=== PATIENT | female | born 1995 | race African-American/Black ===

== ENCOUNTER 2017-08-20 07:13 | Emergency (ER) | payer MEDICAID ==
[2017-08-20 07:37] VITALS: BP 108/68
[2017-08-20 08:25] LABS: Basophils % (Auto) 0.6 % (0.0-1.8); Eosinophils % (Auto) 2.1 % (0.0-4.3); Hematocrit 30.8 % (30.3-42.9); Hemoglobin 10.3 gm/dl (10.1-14.3); Mean Corpuscular HGB Conc 34 % (30-34); Mean Corpuscular Hemoglobin 29 pg (28-32); Mean Corpuscular Volume 87 fl (79-97); Platelet Count 221 K/mm3 (140-440); Red Blood Count 3.55 M/mm3 (3.65-5.03); Red Cell Distribution Width 12.7 % (13.2-15.2); White Blood Count 10.3 K/mm3 (4.5-11.0)
[2017-08-20 08:39] LABS: Anion Gap 17 mmol/L; BUN/Creatinine Ratio 27; Blood Urea Nitrogen 8 mg/dL (7-17); Calcium 8.8 mg/dL (8.4-10.2); Carbon Dioxide 23 mmol/L (22-30); Chloride 101.2 mmol/L (98-107); Glucose 86 mg/dL (65-100); Potassium 3.6 mmol/L (3.6-5.0); Sodium 138 mmol/L (137-145)
== END 2017-08-20 11:26 | disposition left against medical advice (07) ==
LOC: ED 07:13
DX: R07.9 Chest pain, unspecified (principal); Z53.21 Procedure and treatment not carried out due to patient leaving prior to being seen by health care provider
CPT/HCPCS: 36415; 80048; 84484; 85025; 93005; 93010

== ENCOUNTER 2017-10-03 17:18 | Outpatient (CLI) | payer OTHER ==
[2017-10-03] MEDS ORDERED: LACTATED RINGERS 500 ML IV ONE (17:47)
[2017-10-03 17:52] VITALS: BP 109/61
[2017-10-03 18:36] LABS: Bacteria,Urine 1+ /HPF (Negative); Bilirubin,Urine NEG (Negative); Blood,Urine NEG (Negative); Ketones,Urine TR mg/dL (Negative); Leukocyte Esterase,Urine TR (Negative); Mucus,Urine FEW /HPF; Nitrite,Urine NEG (Negative); Protein,Urine <15 mg/dL mg/dL (Negative); Urobilinogen,Urine < 2.0 mg/dL (<2.0)
== END 2017-10-03 18:09 | disposition home or self-care (01) ==
LOC: TRG 17:18
PROVIDERS: ATTEND Obstetrics & Gynecology
DX: O47.03 False labor before 37 completed weeks of gestation, third trimester (principal); Z3A.36 36 weeks gestation of pregnancy
CPT/HCPCS: 81001

== ENCOUNTER 2017-11-14 20:18 | Inpatient (IN) | payer OTHER ==
[2017-11-14] MEDS ORDERED: NARCAN 0.4 MG/1 ML IV PRN (20:19)
[2017-11-14] MEDS ORDERED: ZOFRAN IV PRN (20:19)
[2017-11-14] MEDS ORDERED: CERVIDIL VG ONE (20:19)
[2017-11-14] MEDS ORDERED: BRETHINE SUB-Q PRN (20:19)
[2017-11-14] MEDS ORDERED: ePHEDrine SULFATE IV PRN (20:19)
[2017-11-14] MEDS ORDERED: XYLOCAINE 2% INFILTRATI ONE (20:19)
[2017-11-14] MEDS ORDERED: STADOL IV PRN (20:19)
[2017-11-14] MEDS ORDERED: BRETHINE IVP PRN (20:19)
[2017-11-14] MEDS ORDERED: MINERAL OIL PO PRN (20:19)
[2017-11-14] MEDS ORDERED: PHENERGAN PR PRN (20:19)
[2017-11-14] MEDS ORDERED: SUBLIMAZE IV PRN (20:19)
--- NOTE | 2017-11-14 20:29 | History and Physical Report ---
History of Present Illness Date of examination: 11/14/17 Date of admission: 11/14/17 20:18 Chief complaint: induction of labor for post dates History of present illness: This is a 22 yo at 41 weeks admitted to labor and delivery for IOL for post dates. She is a patient of [facility] late entry at 17 weeks. her OB course was uneventful bedsides late care. Past History Past Medical History: no pertinent history Past Surgical History: no surgical history Family/Genetic History: diabetes (mother ), hypertension (father and mother), other (hypercholesterolemia mother ) Social history: single. denies: smoking, alcohol abuse, prescription drug abuse - Obstetrical History Expected Date of Delivery: 11/07/17 Actual Gestation: 41 Week(s) 0 Day(s) : 1 Para: 0 Hx # Term Pregnancies: 0 Number of Pregnancies: 0 Spontaneous Abortions: 0 Induced : 0 Number of Living Children: 0 Medications and Allergies Allergies Allergy/AdvReac Type Severity Reaction Status Date / Time peanut Allergy Shortness Verified 08/20/17 07:29 of Breath Review of Systems All systems: negative - Physical Exam Breasts: Positive: normal Cardiovascular: Regular rate, Normal S1 Lungs: Positive: Clear to auscultation, Normal air movement Abdomen: Positive: normal appearance, soft, normal bowel sounds. Negative: distention, tenderness, guarding Genitourinary (Female): Positive: normal external genitalia, normal perenium Vulva: both: normal Vagina: Positive: normal moisture Uterus: Positive: normal size Anus/Rectum: Positive: normal perianal skin Extremities: Positive: normal Deep Tendon Reflex Grade: Normal +2 - Obstetrical FHR: auscultation normal Cervical Dilatation: 1 Results All other labs normal. Assessment and Plan A/P HD#1 IOL for post dates at 41 weeks GBS neg Records reviewed EFW 7 pounds vertex IVF and inital labs consider cervidil vs cytotec for cervical ripening offer epidural at appropriate time close monitor of and maternal status expect vaginal delivery r/b/a of IOL reviewed in clinic and here for at least 10 min all questions answered
[2017-11-14] MEDS ORDERED: PITOCin/NS 30 UNIT/500ML 30 UNITS/500 ML BAG IV SCH ×2 (21:00)
[2017-11-14] MEDS ORDERED: PITOCin/NS 20 UNIT/1000ML DRIP 20 UNITS/1,000 ML BAG IV SCH (21:00)
[2017-11-14] MEDS: LACTATED RINGERS 1,000 ML IV SCH ×2 (21:20→22:25)
[2017-11-14 21:36] LABS: Hematocrit 28.8 % (30.3-42.9); Hemoglobin 8.9 gm/dl (10.1-14.3); Mean Corpuscular HGB Conc 31 % (30-34); Mean Corpuscular Hemoglobin 25 pg (28-32); Mean Corpuscular Volume 81 fl (79-97); Platelet Count 258 K/mm3 (140-440); Red Blood Count 3.57 M/mm3 (3.65-5.03); Red Cell Distribution Width 17.3 % (13.2-15.2)
--- NOTE | 2017-11-15 07:23 | Event Note ---
Date: 11/15/17 patient cervidil removed and noted to be 2/75/-2. Patient without pain. Arom clear. Rechecked 1hr later and noted to be 3/75/-2. cat 1 strip with regular contractions q1-2 min. Consider pitocin and will offer epidural at 4cm.
[2017-11-15] MEDS: LACTATED RINGERS 1,000 ML IV SCH ×2 (07:57→09:18)
--- NOTE | 2017-11-15 09:09 | Anesthesia Consultation ---
Anesthesia Consult and Med Hx Date of service: 11/15/17 - Airway Anesthetic Teeth Evaluation: Good ROM Head & Neck: Adequate Mental/Hyoid Distance: Adequate Mallampati Class: Class II Intubation Access Assessment: Probably Good - Pre-Operative Health Status ASA Pre-Surgery Classification: ASA2 Proposed Anesthetic Plan: Epidural, Spinal - Pulmonary Hx Asthma: Yes (LAST ATTACK 8/9YEARS OLD) COPD: No Hx Pneumonia: No - Cardiovascular System Hx Hypertension: No - Central Nervous System Hx Seizures: No Hx Psychiatric Problems: No - Endocrine Hx Renal Disease: No Hx End Stage Renal Disease: No Hx Hypothyroidism: No Hx Hyperthyroidism: No - Hematic Hx Anemia: No Hx Sickle Cell Disease: No - Other Systems Hx Alcohol Use: No
[2017-11-15] MEDS ORDERED: ePHEDrine SULFATE IV PRN (09:10)
[2017-11-15] MEDS ORDERED: NARCAN 2 MG/2 ML IV PRN (09:10)
[2017-11-15] MEDS ORDERED: fentaNYL-BUPIV 2 MCG/ML-0.125% 200 MCG/100 ML BAG EPIDURAL SCH (10:00)
[2017-11-15] MEDS ORDERED: BICITRA PO ONE (13:59)
[2017-11-15] MEDS ORDERED: REGLAN IV ONE (13:59)
[2017-11-15] MEDS ORDERED: PEPCID IV ONE (13:59)
[2017-11-15] MEDS ORDERED: PITOCin/NS 20 UNIT/1000ML DRIP 20 UNITS/1,000 ML BAG IV SCH ×2 (14:00→16:00)
[2017-11-15] MEDS ORDERED: LACTATED RINGERS 1,000 ML IV SCH (14:00)
[2017-11-15] MEDS ORDERED: ANCEF/STERILE WATER 2 GM/20 ML 2 GM/20 ML SYRINGE IV ONE (14:05)
--- NOTE | 2017-11-15 14:05 | Event Note ---
Date: 11/15/17 Patient has been noted to be 4 cm for 4 hrs with adequate contractions. Pitocin at 30. patient also had some late decels and o2, ivf and position change implemented. I also suspect CPD. I spoke with patient concerning above events and recommended primary c/sec. We discussed r/b/a of c/sec including but not limited to bleeding ifection, damage to pelvic and non pelvic organs risk of hysterectomy and risk of . Patient agrees with plan and will proceed with primary c/sec
[2017-11-15] MEDS ORDERED: XYLOCAINE MPF 2% ONE ×2 (14:24→14:52)
[2017-11-15] MEDS ORDERED: BENADRYL IV PRN (14:36)
--- NOTE | 2017-11-15 14:36 | Anesthesia Day of Surgery ---
Anesthesia Day of Surgery - Day of Surgery Patient Examined: Yes Patient H&P Reviewed: Yes Patient is NPO: Yes
[2017-11-15] MEDS ORDERED: MORPHINE IV PRN ×2 (14:37)
[2017-11-15] MEDS ORDERED: ANCEF/STERILE WATER 2 GM/20 ML IV ONE (14:43)
[2017-11-15] MEDS ORDERED: NACL 0.9% IR ONE (14:45)
[2017-11-15] MEDS ORDERED: WATER FOR IRRIG STERILE IR ONE (14:45)
[2017-11-15] MEDS ORDERED: DIPRIVAN 10 MG/ML IV ONE (14:53)
[2017-11-15] MEDS ORDERED: NEO SYNEPHRINE/NS Syringe(OR USE) IV ONE (14:55)
[2017-11-15] MEDS ORDERED: SODIUM CHLORIDE FLUSH SYRINGE 10 ML IV NR ×2 (15:00→16:00)
[2017-11-15] MEDS ORDERED: METHERGINE IM ONE ×2 (15:02→16:48)
[2017-11-15] MEDS ORDERED: MORPHINE ONE ×2 (15:28)
[2017-11-15] MEDS ORDERED: DILAUDID ONE (15:35)
--- NOTE | 2017-11-15 15:57 | Operative Report ---
Operative Report Operative Report: DATE OF OPERATION: 11/15/17 PREOPERATIVE DIAGNOSES: 1. Intrauterine gestation at 41 weeks, in active labor. 2. NRFHT with late decels 3. Persistent occiput posterior position. 4. suspected CPD 5. Remote from delivery POSTOPERATIVE DIAGNOSES: 1. -5 SMILEY 6. nuchal cord aroun left leg OPERATION PERFORMED: Primary low transverse section. SURGEON: valentino Servin MD ANESTHESIA: Epidural. COMPLICATIONS: None. ESTIMATED BLOOD LOSS: 700 mL. DRAINS: Martinez catheter to the bladder. SPECIMENS TO PATHOLOGY: Cord blood for routine testing. OPERATIVE FINDINGS: A viable female with Apgars of 8 and 9 and birthweight of 9 pounds 9 ounces was delivered from a cephalic presentation, persistent occiput posterior position. Weight 7 pounds 9 ounces The cord contained 3 vessels. There was normal anterior fundal placenta. The amniotic fluid was clear. The uterus, fallopian tubes and ovaries were normal. DESCRIPTION OF OPERATION: The patient was brought to the operating suite in stable condition with epidural anesthesia on board and an indwelling catheter in place in the bladder. The patient was placed supine on the operating room table and rolled to her left side with a wedge. The abdomen was prepped and draped in standard fashion for section. After testing with forceps to assure an adequate anesthetic level, the surgery was commenced. We had counseled the patient extensively regarding the risks of the surgery including but not limited to stroke, embolus, phlebitis, pain, infection, hemorrhage, as well as injury to the infant and the internal organs such as the bowel, bladder, blood vessels, nerves, kidneys, ureters and pelvic organs. The patient was aware of the postoperative morbidity issues and recovery timeframes. The patient was aware she can form adhesions, which can result in obstruction of loop of bowel or ureter or chronic pain. She was aware that should she have hemorrhage and require blood transfusion, there was a small chance for exposure to hepatitis or HIV disease. With the scalpel, a Pfannenstiel skin incision was made. Dissection was carried down sharply through the subcutaneous tissues and fascia in a transverse plane with the scalpel, electrocautery and curved Valdez scissors. The fascia was sharply freed up superiorly and inferiorly from the underlying rectus muscles, which were bluntly and sharply divided. The peritoneum was entered carefully in a clear space with a curved hemostat. The peritoneal incision was then extended vertically with Metzenbaum scissors. A retractor and bladder blade were placed. A bladder flap was created by incising transversely through the peritoneum and vesicouterine fold and then bluntly dissecting the bladder distally. With the scalpel, a low transverse hysterotomy was commenced. The serosa and myometrium were scored with the scalpel. The uterine cavity was actually entered bluntly with a curved hemostat. The uterine incision was then extended laterally with the clay press operator's fingers. An intrauterine hand was placed and the head of the was brought up out of the pelvis into the uterine incision. With fundal pressure, he was delivered without difficulty. The nasopharynx and oropharynx were suctioned. The cord was doubly clamped and transected. The was then handed off to the nursery personnel. Apgars were good at 8 and 9. A cord pH was obtained, which subsequently revealed a normal value. Further cord blood was collected for routine testing. Intravenous Pitocin given. The placenta was manually removed. The uterine cavity was then curetted with a dry sponge and freed of the remaining membranes. The edges of the uterine incision were grasped with John clamps. With the massage and the Pitocin, the uterus began to firm up normally. The uterine incision was then closed in 2 layers of 0 Vicryl sutures. The first suture was placed to the endometrium and myometrium. The second suture was placed through the endopelvic fascia and also reincorporated the bladder flap peritoneum. Peritoneal lavage was then performed. The pelvis and gutters were irrigated and suctioned and cleared of all blood and clots and amniotic fluid. The uterine incision was reinspected to assure hemostasis. The uterus, tubes and ovaries were inspected and were normal. Once we were satisfied with the hemostasis, attention was turned to closure of the abdominal incision. The peritoneum, muscles and fascia were closed in layers using 0-Vicryl sutures. The subcutaneous tissue was closed with 3-0 plain sutures. The skin was closed with a subcuticular suture of 4-0 Vicryl followed by benzoin, Steri-Strips and a Telfa dressing. The patient was moved to the recovery room in stable condition with the Martinez catheter draining clear urine. Instruments, sponge and needle counts were reported as correct. Estimated blood loss was 700 mL. There were no complications.
[2017-11-15] MEDS ORDERED: LANSINOH TP PRN (15:58)
[2017-11-15] MEDS ORDERED: MYLICON PO PRN (15:58)
[2017-11-15] MEDS ORDERED: TORADOL IV PRN (15:58)
[2017-11-15] MEDS ORDERED: ANUCORT-HC PR PRN (15:58)
[2017-11-15] MEDS ORDERED: NARCAN 0.4 MG/1 ML IV PRN (15:58)
[2017-11-15] MEDS ORDERED: TUCKS PAD TP PRN (15:58)
[2017-11-15] MEDS ORDERED: TYLENOL PR PRN (15:58)
[2017-11-15] MEDS ORDERED: SENOKOT PO PRN (15:58)
[2017-11-15] MEDS ORDERED: D5LR 1,000 ML IV SCH (16:00)
[2017-11-15] MEDS ORDERED: DILAUDID IV PRN (16:43)
[2017-11-15] MEDS: TORADOL IV PRN (16:45)
[2017-11-15 18:20] LABS: Basophils # (Auto) 0.1 K/mm3 (0.0-0.1); Basophils % (Auto) 0.5 % (0.0-1.8); Eosinophils % (Auto) 0.1 % (0.0-4.3); Hematocrit 27.8 % (30.3-42.9); Hemoglobin 8.7 gm/dl (10.1-14.3); Lymphocytes # (Auto) 1.1 K/mm3 (1.2-5.4); Lymphocytes % (Auto) 7.3 % (13.4-35.0); Mean Corpuscular HGB Conc 31 % (30-34); Mean Corpuscular Volume 78 fl (79-97); Monocytes # (Auto) 0.9 K/mm3 (0.0-0.8); Monocytes % (Auto) 5.7 % (0.0-7.3); Platelet Count 189 K/mm3 (140-440); Red Blood Count 3.56 M/mm3 (3.65-5.03); Red Cell Distribution Width 17.1 % (13.2-15.2)
[2017-11-15 18:21] LABS: Mean Corpuscular Hemoglobin 25 pg (28-32)
[2017-11-15] MEDS: MILK OF MAGNESIA PO PRN (21:21)
[2017-11-16] MEDS: TORADOL IV PRN (02:16)
[2017-11-16 05:11] LABS: Hematocrit 20.2 % (30.3-42.9); Hemoglobin 6.4 gm/dl (10.1-14.3)
[2017-11-16] MEDS ORDERED: BOOSTRIX IM ONE (06:00)
--- NOTE | 2017-11-16 07:52 | Progress Note ---
Assessment and Plan A/P POD#1 s/p primary c/sec for nrft, cpd feels light headed and week h/h 8.9-6.4 discussed blood transfusion and risk and agreed for 2U blood transfusion abdominal binder no flatus -give mag citrate breast feeding and bonding with baby VSS continue routine post course Subjective - Subjective Date of service: 11/16/17 Principal diagnosis: s/p c/sec for nrfht and cpd Interval history: This is a 22 yo at 41 weeks admitted to labor and delivery for IOL for post dates. She is a patient of [facility] late entry at 17 weeks. her OB course was uneventful bedsides late care. Patient reports: appetite normal, voiding normally, pain well controlled, no flatus, no bowel movement : doing well, nursing well Objective - Vital Signs Latest vital signs: Vital Signs Temp Pulse Resp BP BP Pulse Ox 11/16/17 05:25 98.5 F 110 H 18 91/60 98 11/16/17 01:00 98.6 F 109 H 18 94/51 109 H 11/15/17 20:50 98.6 F 102 H 18 108/57 98 11/15/17 17:04 99.6 F 11/15/17 17:00 103 H 21 110/66 95 11/15/17 16:55 106 H 14 110/69 95 11/15/17 16:50 98 H 13 110/69 94 11/15/17 16:45 99 H 10 L 114/73 95 11/15/17 16:40 101 H 14 115/64 96 11/15/17 16:35 102 H 11 L 104/64 98 11/15/17 16:30 93 H 12 102/66 96 11/15/17 16:25 90 12 98/59 97 11/15/17 16:20 92 H 13 108/60 97 11/15/17 16:15 95 H 14 111/64 97 11/15/17 16:10 92 H 34 H 108/61 98 11/15/17 16:05 98.8 F 91 H 28 H 103/65 96 11/15/17 16:02 99 11/15/17 14:13 96 H 126/59 11/15/17 13:57 82 106/54 11/15/17 13:43 84 100/61 11/15/17 13:33 98 H 99 01/18/18 13:28 100 H 99 01/18/18 13:23 92 H 99 01/18/18 13:18 96 H 98 01/18/18 13:13 94 H 99 01/18/18 13:08 100 H 99 01/18/18 13:03 97 H 99 01/18/18 12:58 101 H 97 01/18/18 12:57 96 H 107/51 01/18/18 12:53 128 H 98 01/18/18 12:48 95 H 99 01/18/18 12:43 94 H 116/69 100 01/18/18 12:38 113 H 99 01/18/18 12:37 117 H 90/55 01/18/18 12:33 99 H 99 01/18/18 12:28 100 H 98 01/18/18 12:27 96 H 86/49 01/18/18 12:23 88 97 01/18/18 12:18 86 98 01/18/18 12:13 103 H 98 01/18/18 12:12 96 H 87/49 01/18/18 12:08 97 H 98 01/18/18 12:03 92 H 98 01/18/18 11:58 103 H 91/48 98 01/18/18 11:53 91 H 99 01/18/18 11:48 89 97 01/18/18 11:43 89 97 01/18/18 11:42 92 H 91/50 01/18/18 11:38 89 98 01/18/18 11:33 104 H 98 01/18/18 11:30 105 H 94 01/18/18 11:28 99 H 113/56 98 01/18/18 11:23 97 H 97 01/18/18 11:18 90 96 01/18/18 11:13 107 H 107/58 97 01/18/18 11:08 87 97 01/18/18 11:03 95 H 98 01/18/18 10:58 93 H 104/54 99 01/18/18 10:53 88 99 01/18/18 10:48 89 99 01/18/18 10:44 87 96/54 01/18/18 10:43 92 H 99 01/18/18 10:38 88 99 01/18/18 10:33 79 100 01/18/18 10:29 88 105/59 01/18/18 10:28 90 99 11/15/17 10:23 81 100 11/15/17 10:18 92 H 99 11/15/17 10:13 94 H 98 11/15/17 10:12 127 H 98/57 11/15/17 10:08 103 H 98 11/15/17 10:03 91 H 97 11/15/17 09:58 95 H 99 11/15/17 09:57 99 H 100/71 11/15/17 09:54 90 105/59 11/15/17 09:53 90 98 11/15/17 09:51 82 109/55 11/15/17 09:48 88 110/58 98 11/15/17 09:44 91 H 109/56 11/15/17 09:43 90 98 11/15/17 09:41 77 109/59 11/15/17 09:38 85 111/59 97 11/15/17 09:35 85 119/63 11/15/17 09:33 98 H 98 11/15/17 09:32 84 113/62 11/15/17 09:30 18 114/63 11/15/17 09:29 87 114/63 11/15/17 09:28 93 H 99 11/15/17 09:26 91 H 110/64 11/15/17 09:23 72 119/71 77 L 11/15/17 09:21 97 H 112/78 11/15/17 09:19 110 H 86 11/15/17 09:18 108 H 143/64 97 11/15/17 08:50 81 109/68 11/15/17 08:20 94 H 110/65 Intake and Output 11/15/17 11/15/17 11/16/17 15:59 23:59 07:59 Intake Total 878.364 8453 120 Output Total 470 200 Balance 420.850 940 120 Intake: IV 890.850 900 Lactated Ringers 1,000 ml 168.75 @ 125 mls/hr IV DIRECT TANISHA Rx#:[id number] PITOCin/NS 30 UNIT/500ML 22.100 30 units In 500 ml @ As Directed IV TITR TANISHA Rx#: [id number] Oral 240 120 Output: Urine 470 200 Indwelling Catheter 370 Other: Total, Intake Amount 240 120 Total, Output Amount 370 Estimated Blood Loss 700 - Exam Breasts: Present: normal Cardiovascular: Present: Regular rate, Normal S1 Lungs: Present: Clear to auscultation, Normal air movement Abdomen: Present: normal appearance, soft, distention, normal bowel sounds. Absent: tenderness Vulva: both: normal Uterus: Present: normal, firm, fundal height below umbilicus. Absent: bogginess , tenderness Extremities: Present: normal Deep Tendon Reflex Grade: Normal +2 Incision: Present: dressed - Labs Labs: Abnormal lab results 11/15/17 11/16/17 Range/Units 17:55 04:18 WBC 15.5 H (4.5-11.0) K/mm3 RBC 3.56 L (3.65-5.03) M/mm3 Hgb 8.7 L 6.4 L (10.1-14.3) gm/dl Hct 27.8 L 20.2 L D (30.3-42.9) % MCV 78 L (79-97) fl MCH 25 L (28-32) pg RDW 17.1 H (13.2-15.2) % Lymph % (Auto) 7.3 L (13.4-35.0) % Lymph # 1.1 L (1.2-5.4) K/mm3 [place] # 0.9 H (0.0-0.8) K/mm3 Seg Neutrophils % 86.4 H (40.0-70.0) % Seg Neutrophils # 13.4 H (1.8-7.7) K/mm3
[2017-11-16] MEDS ORDERED: NACL 0.9% 500 ML 500 ML IV NR (08:30)
[2017-11-16] MEDS ORDERED: CITRATE OF MAGNESIA PO NR (09:00)
[2017-11-16] MEDS: PERCOCET 5/325 PO PRN (09:50)
[2017-11-16] MEDS: FEOSOL PO SCH (09:50)
[2017-11-16] MEDS: PRENATAL VITAMIN PO SCH (09:50)
--- NOTE | 2017-11-16 13:29 | Query-Anemia ---
Dear Date:_11/16/17 Design Specialist/CDS:Everardo Phone#:_[phone] Exercise your independent professional judgment when responding to this query. Questions asked do not imply a particular answer is desired or expected. We greatly appreciate your clarification on this issue. Clinical Documentation States: 22 yo at 41 weeks admitted on 11/15/17 to labor and delivery for IOL for post dates /CSO Progress Note( Dr. Beena Servin) states" Assessment and Plan A/P POD#1 s/p primary c/sec for nrft, cpd feels light headed and week h/h 8.9-6.4 discussed blood transfusion and risk and agreed for 2U blood transfusion" Operative Report states" ESTIMATED BLOOD LOSS: 700 mL. " Clinical Findings Show: 11/15/17 11/16/17 Hb 8.9 6.4 Hct_ 28.8 20.2 Etiology: [ x] Anemia due to acute blood loss [x ] Anemia due to chronic blood loss [ ] Anemia secondary to ESRD [ ] Anemia secondary to neoplastic disease [ ] Iron deficiency anemia due to malabsorption [ ] GI Bleed from: [ ] Anemia of chronic disease ,Other: [ ] Precipitous Drop in Hemoglobin [ ] Precipitous Drop in Hematocrit [ ] Other: [ ] Unable to determine [ ] Comment/Explanation: Present on Admission: [x ] Yes (Y) [ ] Clinically undeterminable (W) [ ] No (N) Please also document response in your Progress Notes and/or Discharge Summary and indicate if the condition was present on admission. MTDD
[2017-11-16] MEDS ORDERED: M-M-R II VACCINE SUB-Q ONE (15:59)
[2017-11-16 21:21] LABS: Hematocrit 32.2 % (30.3-42.9); Hemoglobin 10.3 gm/dl (10.1-14.3)
[2017-11-17] MEDS: NORCO 5/325 PO PRN ×3 (01:05→06:25)
[2017-11-17] MEDS: MOTRIN PO PRN (01:05)
[2017-11-17 07:27] LABS: Hemoglobin 9.2 gm/dl (10.1-14.3)
--- NOTE | 2017-11-17 11:35 | Post Anesthesia Evaluation ---
- Post Anesthesia Evaluation Patient Participated: Yes Airway Patent: Yes Stable Respiratory Function: Yes Nausea/Vomiting: No Temp > 96.8F: Yes Pain Manageable: Yes Adequeate Hydration: Yes Anesthesia Complications: No Block Receding Appropriately: Yes Patient on Ventilator: No
--- NOTE | 2017-11-17 13:57 | Progress Note ---
Assessment and Plan O: VSS AF PP H/H: A: Stable PP Day 2 S/P primary C/S Day 1 Anemia P: Continue PP orders Discharge in am Subjective - Subjective Date of service: 11/17/17 Principal diagnosis: s/p c/sec for nrfht and cpd Patient reports: appetite normal, voiding normally, pain well controlled, flatus , ambulating normally [place]: doing well Objective - Vital Signs Latest vital signs: Vital Signs Temp Pulse Resp BP BP Pulse Ox 11/17/17 07:50 97.7 F 74 20 95/65 95 11/17/17 00:00 98.9 F 100 H 18 98/63 11/16/17 14:30 98.7 F 91 H 18 103/57 Intake and Output 11/16/17 11/17/17 11/17/17 22:59 06:59 14:59 Intake Total 120 Output Total 700 600 Balance -700 -480 Intake: Oral 120 Output: Urine 700 600 Void 700 600 Other: Total, Intake Amount 120 Total, Output Amount 300 600 # Voids Void 1 3 - Exam Breasts: Present: deferred Lungs: Present: Normal air movement Abdomen: Present: normal appearance, soft. Absent: distention, tenderness Vulva: both: normal Uterus: Present: normal, firm, fundal height below umbilicus. Absent: bogginess , tenderness Extremities: Present: normal Incision: Present: normal - Labs Labs: Abnormal lab results 11/14/17 11/17/17 Range/Units 20:55 06:50 Hgb 9.2 L (10.1-14.3) gm/dl Hct 28.0 L (30.3-42.9) % Crossmatch See Detail
[2017-11-17] MEDS: PERCOCET 5/325 PO PRN (17:03)
[2017-11-17] MEDS: PRENATAL VITAMIN PO SCH (17:03)
[2017-11-17] MEDS: FEOSOL PO SCH (17:04)
[2017-11-18] MEDS: MILK OF MAGNESIA PO PRN (00:04)
[2017-11-18] MEDS: MOTRIN PO PRN (12:31)
[2017-11-18] MEDS: FEOSOL PO SCH (12:31)
[2017-11-18] MEDS: PRENATAL VITAMIN PO SCH (12:31)
--- NOTE | 2017-11-18 16:11 | Discharge Summary ---
Providers - Providers Date of Admission: 11/14/17 20:18 Date of discharge: 11/18/17 Attending physician: SHERI SEGOVIA Primary care physician: SHERI SEGOVIA Hospitalization Reason for admission: induction of labor, IUP at term Delivery: Procedure: primary low transverse Episiotomy: none Laceration: none Incision: normal, dry, intact complications: transfusion Discharge diagnosis: IUP at term delivered baby: female Condition at discharge: Good Disposition: DC- TO HOME OR SELFCARE Plan - Discharge Medications Prescriptions: Docusate Sodium [Colace] 100 mg PO BID PRN #30 capsule PRN Reason: Constipation Ferrous Sulfate 325 mg PO TID #60 tablet. Ibuprofen [Motrin] 600 mg PO Q8H PRN #30 tablet PRN Reason: Pain oxyCODONE /ACETAMINOPHEN [Percocet 5/325] 1 tab PO Q6HR PRN #30 tablet PRN Reason: Pain - Provider Discharge Summary Activity: routine, no sex for 6 weeks, no heavy lifting 4 weeks, no strenuous exercise Diet: routine Instructions: routine Additional instructions: [] Smoking cessation referral if applicable(refer to patient education folder for contact #) [] Refer to [facility] Booklet Call your doctor immediately for: * Fever > 100.5 * Heavy vaginal bleeding ( >1 pad per hour) * Severe persistent headache * Shortness of breath * Reddened, hot, painful area to leg or breast * Drainage or odor from incision. * Keep incision clean and dry at all times and follow doctor's instructions regarding bathing/showering - Follow up plan Follow up: SHERI SEGOVIA MD [Primary Care Provider] - 14 Days (incision check) Forms: [facility] Discharge Summary
[2017-11-18 17:23] VITALS: BP 109/70
== END 2017-11-18 17:30 | disposition home or self-care (01) | DRG 765 ==
LOC: LD 20:18 → OB 11-15 17:29
PROVIDERS: ADMIT Obstetrics & Gynecology; ATTEND Obstetrics & Gynecology
PROC: 10D00Z1 Extraction of Products of Conception, Low, Open Approach (ICD-10-PCS; principal; 2017-11-15)
PROC: 10907ZC Drainage of Amniotic Fluid, Therapeutic from Products of Conception, Via Natural or Artificial Opening (ICD-10-PCS; 2017-11-15)
PROC: 3E0234Z Introduction of Serum, Toxoid and Vaccine into Muscle, Percutaneous Approach (ICD-10-PCS; 2017-11-16)
PROC: 30233N1 Transfusion of Nonautologous Red Blood Cells into Peripheral Vein, Percutaneous Approach (ICD-10-PCS; 2017-11-16)
DX: O76 Abnormality in fetal heart rate and rhythm complicating labor and delivery (principal); D62 Acute posthemorrhagic anemia; O99.02 Anemia complicating childbirth; O48.0 Post-term pregnancy; O99.52 Diseases of the respiratory system complicating childbirth; J45.909 Unspecified asthma, uncomplicated; O69.81X0 Labor and delivery complicated by cord around neck, without compression, not applicable or unspecified; O64.0XX0 Obstructed labor due to incomplete rotation of fetal head, not applicable or unspecified; Z3A.41 41 weeks gestation of pregnancy; Z37.0 Single live birth; Z82.49 Family history of ischemic heart disease and other diseases of the circulatory system; Z83.3 Family history of diabetes mellitus; Z91.010 Allergy to peanuts; Z23 Encounter for immunization
CPT/HCPCS: 36415; 59200; 85014; 85018; 85025; 85027; 86592; 86850; 86900; 86901; 86920; 88307; 90471; 90715; C9250; J0690; J1170; J1200; J1885; J2210; J2270; J2370; J2590; J2704; J2765; J3010; J7040; J7120; J7121; P9016